=== PATIENT | female | born 1990 | race Two or more races ===

== ENCOUNTER 2017-05-05 05:38 | Inpatient (IN) | payer OTHER ==
[~2017-05-05] VITALS: Ht 152.4 cm; Wt 65.3 kg
[2017-05-05] MEDS ORDERED: IBUPROFEN 600 MG TABLET. PO PRN (05:45)
[2017-05-05] MEDS ORDERED: CITRIC ACID/SODIUM CITRATE 30 ML SOLUTION. PO PRN (05:45)
[2017-05-05] MEDS ORDERED: MAG HYDROX/ALUMINUM HYD/SIMETH 30 ML ORAL.SUSP PO PRN ×2 (05:45→18:30)
[2017-05-05] MEDS ORDERED: BUTORPHANOL 2 MG/ML VIAL. IV PRN ×2 (05:45)
[2017-05-05] MEDS ORDERED: OXYTOCIN 30 UNIT/500 ML PREMIX 500 ML IV PRN ×3 (05:45→18:30)
[2017-05-05] MEDS ORDERED: TERBUTALINE 1 MG/ML VIAL. SQ PRN (05:45)
[2017-05-05] MEDS ORDERED: ONDANSETRON PF 4 MG/2 ML VIAL. IV PRN (05:45)
[2017-05-05] MEDS ORDERED: LIDOCAINE 1% PF 30 ML VIAL. INJ PRN (05:45)
[2017-05-05] MEDS ORDERED: 0.9 % SODIUM CHLORIDE 10 ML DISP.SYRIN. IV PRN ×2 (05:45→18:30)
[2017-05-05 06:40] LABS: HEMATOCRIT 30.2 % (36.0-47.0); RED BLOOD COUNT 3.94 x10^6/uL (3.50-5.40); RED CELL DISTRIBUTION WIDTH 15.4 % (11.5-14.5); WHITE BLOOD COUNT 8.1 x10^3/uL (4.0-11.0)
[2017-05-05 06:42] LABS: BILIRUBIN,URINE NEGATIVE (NEG); GLUCOSE,URINE NEGATIVE (NEG); NITRITE,URINE NEGATIVE (NEG); PH,URINE 6.5; PROTEIN,URINE NEGATIVE (NEG-TRACE); UROBILINOGEN,URINE 0.2 mg/dL (0.2 mg/dL)
[2017-05-05 06:49] LABS: SQUAMOUS EPITHELIAL CELL,UR MOD /LPF
[2017-05-05 06:50] LABS: BACTERIA,URINE FEW /HPF (0-FEW); RBC,URINE 0 /HPF (0-2); WBC,URINE OCC /HPF (0-4)
[2017-05-05] MEDS: IV RINGERS,LACTATED 1000ML 1,000 ML IV SCH ×2 (06:53→12:53)
[2017-05-05] MEDS ORDERED: OXYTOCIN 30 UNIT/500 ML PREMIX 500 ML IV ONE (07:00)
[2017-05-05 07:18] VITALS: BP 116/70
[2017-05-05] MEDS ORDERED: fentaNYL PF VIAL 100 MCG/2 ML VIAL IV PRN (16:00)
[2017-05-05] MEDS ORDERED: HYDROcodone/APAP 5/325MG 1 TAB TABLET PO PRN (18:30)
[2017-05-05] MEDS ORDERED: ACETAMINOPHEN 325 MG TABLET. PO PRN (18:30)
[2017-05-05] MEDS ORDERED: SIMETHICONE 80 MG TAB.CHEW PO PRN (18:30)
[2017-05-05] MEDS ORDERED: diphenhydrAMINE HCL 25 MG CAPSULE PO PRN (18:30)
[2017-05-05] MEDS ORDERED: HYDROCORTISONE 1% TOPICAL OINTMENT 30GM TUBE. TP PRN (18:30)
[2017-05-05] MEDS ORDERED: ZOLPIDEM 5 MG TABLET. PO PRN (18:30)
[2017-05-05] MEDS ORDERED: PHENYLEPH/MINERAL OIL/PETROLAT RECTAL OINTMENT 28GM TUBE. RC PRN (18:30)
[2017-05-05] MEDS ORDERED: BENZOCAINE 20% TOPICAL AEROSOL SPRAY 57GM CAN. TP PRN (18:30)
[2017-05-05] MEDS ORDERED: MAGNESIUM HYDROXIDE 2,400 MG/30 ML ORAL.SUSP. PO PRN (18:30)
--- NOTE | 2017-05-05 18:32 | PDOC ---
VAGINAL DELIVERY DATE DATE: 05/05/17 TIME: 18:29 : 3 Para: 2 EDC: May 09, 2017 VAGINAL DELIVERY: VTX VACCUM ASSISTED: No PLACENTA: Spontaneous 06/03/9 SEX: Female WEIGHT 7/5 Nuchal Cord: No Amniotic Fluid: Clear PAIN: Local EPISIOTOMY: No EXTENSION: Yes EBL 300cc COMPLICATIONS none CONDITION Stable ADDITIONAL NOTES Precipitous delivery by nursing in attendance Signs of Intrauterine Infectio: None Shoulder Dystocia: No DIAGNOSIS TIUP del; Problems: ADELITA MONROE MD May 05, 2017 18:32
[2017-05-05 21:20] VITALS: BP 129/61
[2017-05-05] MEDS: IBUPROFEN 800 MG TABLET. PO SCH (22:00)
[2017-05-05 22:10] VITALS: BP 118/66
[2017-05-06 04:20] VITALS: BP 112/67
[2017-05-06 07:30] LABS: RPR REFLEX Non Reactive (Non Reactive)
--- NOTE | 2017-05-06 07:49 | PDOC ---
Provider Note Provider Note Doing well VSS uterus NTTP Fu in AM Vital Sign - Last 24 Hours 05/05/17 05/05/17 05/05/17 05/06/17 16:05 21:20 22:10 04:20 Temp 98.6 98.4 97.9 98.6 98.4 97.9 Pulse 65 74 72 Resp 20 18 16 14 B/P (MAP) 129/61 (83) 118/66 (83) 112/67 (82) Pulse Ox 95 O2 Delivery Room Air CBC - BMP 05/06/17 03:41 ADELITA MONROE MD May 06, 2017 07:49
[2017-05-06] MEDS ORDERED: FERROUS SULFATE 325 MG TABLET. PO SCH (08:00)
[2017-05-06 09:15] VITALS: BP 108/50
[2017-05-06 16:20] VITALS: BP 106/71
[2017-05-06 20:20] VITALS: BP 119/75
[2017-05-06] MEDS: IBUPROFEN 800 MG TABLET. PO SCH (22:00)
[2017-05-07 06:30] VITALS: BP 103/61
[2017-05-07 11:20] VITALS: BP 107/62
--- NOTE | 2017-05-07 14:13 | PDOC1 ---
OB - History Hx of Present Ultrasounds: Normal mid trimester US Obstetrical Complications: None Medical Complications: None Past Family/Social History * Past Medical, Surgical, Family and Obstetric Histories reviewed from chart. Blood Type: B+ Rubella: Immune RPR/VDRL: Negative GBS Status: Negative HBsAG: Negative OB - Chief Complaint & HPI Date of Admission: Date of Admission: May 05, 2017 at 05:38 Chief Complaint/History : 3 Para: 2 EDC: May 09, 2017 Reason for admission: induction of labor Indication for induction: other Admission Nurse Assessment Rev: Yes Problems: OB - Admission Exam Physical Exam Vitals: VS - Last 72 Hours, by Label Date Time Temp Pulse Resp B/P (MAP) Pulse Ox O2 Delivery O2 Flow Rate FiO2 05/07/17 11:20 98.2 66 18 107/62 (77) 99 Room Air 98.2 05/07/17 06:30 98.1 61 18 103/61 (75) 98 Room Air 98.1 05/06/17 20:20 98.4 81 18 119/75 (90) 98 Room Air 98.4 05/06/17 16:20 98.1 76 18 106/71 (83) Room Air 98.1 05/06/17 09:15 98.2 67 18 108/50 (69) Room Air 98.2 05/06/17 04:20 97.9 72 14 112/67 (82) 97.9 05/05/17 22:10 98.4 74 16 118/66 (83) 98.4 05/05/17 21:20 98.6 65 18 129/61 (83) 95 98.6 05/05/17 16:05 20 Room Air 05/05/17 07:18 98.0 77 18 116/70 (85) Room Air 98.0 HEENT: Normal, Nasal Mucosa Normal, Oropharynx Normal, Moist Membranes, Fontanelles Normal Heart: Regular Rate Lungs: Clear, Equal Abdomen: Gravid Extremities: Normal Pulses, No tenderness or swelling Reflexes: Normal Cervical Dilatation: 2cm Effacement: 25% Station: Ballotable Amniotic Fluid: Clear Heart Rate: Normal Accelerations: Accelerations Present Decelerations: No decelerations Short Term Variability: Present Intensity: Mild Assessment/Plan Assessment/Plan TIUP Induction ACSVD Problems: ADELITA MONROE MD May 07, 2017 14:13
--- NOTE | 2017-05-07 14:14 | PDOC3 ---
OB DISCHARGE SUMMARY DATE OF ADMISSION: 05/05/17 DATE OF DISCHARGE: 05/07/17 REASON FOR ADMISSION: Induction of labor PROCEDURES: None INTRAPARTUM PROCEDURES: Spontanous Vag Deliv PROCEDURES: None OPERATIONS: None DISCHARGE DIAGNOSIS: Term Delivered DISCHARGE INFORMATION: Activity, Diet HOSPITAL COURSE Unremarkable CONDITION AT DISCHARGE Stable ADELITA MONROE MD May 07, 2017 14:14
[2017-05-07] MEDS ORDERED: HYDR-971 PO (14:16)
[2017-05-07] MEDS ORDERED: NAPR500T3 PO (14:16)
[2017-05-07 19:05] VITALS: BP 117/77
== END 2017-05-07 19:11 | disposition home or self-care (01) | DRG 775 ==
LOC: 3 SO LND 05:38 → 3 NORTH 21:00
PROVIDERS: ADMIT Specialist; ATTEND Specialist
PROC: 10E0XZZ Delivery of Products of Conception, External Approach (ICD-10-PCS; principal; 2017-05-05)
DX: O62.3 Precipitate labor (principal); O70.0 First degree perineal laceration during delivery; Z37.0 Single live birth; Z3A.37 37 weeks gestation of pregnancy
CPT/HCPCS: 36415; 81001; 85014; 85027; 86593; 86850; 86900; 86901; C1887; J2590; J3010; J7120